=== PATIENT | female | born 1995 | race Caucasian/White ===

== ENCOUNTER 2018-02-18 09:39 | Emergency (ER) | payer BC, OTHER ==
[~2018-02-18] VITALS: Ht 165.1 cm; Wt 75.8 kg
[~2018-02-18 09:39] MED LIST: ATIVAN0.5 MG PO; BACTRIM DS TAB1 EACH PO; CIPRO500 MG PO; CIPROFLOXACIN500 M1 PO; CYCLOBENZAPRINE5 MG PO; FLEXERIL PO; IBUPROFEN 600600 M1; IBUPROFEN 600600 M1 PO; MACROBID 100 M100 M1 PO; MOBIC7.5 MG PO; NOHOMEMEDICATIONS; PERCOCET 5-3251 EACH PO; PHENAZOPYRIDIN200 M2 PO; PROTONIX40 M1 PO; PROVENTIL; TRINATE TABLET1 TAB PO; ZOFRAN4 MG PO
[2018-02-18 10:14] LABS: URINE BILIRUBIN NEGATIVE (Negative); URINE BLOOD 2+ (Negative); URINE CLARITY CLEAR; URINE COLOR YELLOW; URINE GLUCOSE-RANDOM* NEGATIVE (Negative); URINE KETONES NEGATIVE (Negative); URINE LEUKOCYTES-REFLEX NEGATIVE (Negative); URINE NITRITE-REFLEX NEGATIVE (Negative); URINE PROTEIN (DIPSTICK) NEGATIVE (Negative); URINE SPECIFIC GRAVITY 1.015 (1.005-1.035); URINE UROBILINOGEN 0.2 E.U./dl (0.2-1.0)
[2018-02-18 10:28] LABS: SQUAMOUS 4-10 Moderate /LPF (0-3)
[2018-02-18 10:29] LABS: CASTS None Seen /LPF (None Seen); CRYSTALS None Seen /LPF (None Seen); URINE RBC 0-2 Rare /HPF (0-2); URINE WBC-REFLEX 0-5 Rare /HPF (0-5)
[2018-02-18 10:30] LABS: BACTERIA-REFLEX 1-9 Few /HPF (None Seen)
[2018-02-18 10:47] LABS: ABSOLUTE NEUTROPHILS 4.3 thou/uL (1.4-8.2); BASOPHILS 0.5 % (0.0-2.0); EOSINOPHILS 3.1 % (0.0-3.0); HEMATOCRIT 36.9 % (37.0-47.0); HEMOGLOBIN 12.6 gm/dL (12.0-15.0); MCH 27.3 pg (26.0-34.0); MCHC 34.2 g/dL (28.0-37.0); MCV 79.7 fL (80.0-100.0); MONOCYTES 6.7 % (1.0-8.0); PLATELET COUNT 385 thou/uL (150-400); POLYS 59.7 % (36.0-66.0); RBC 4.63 mil/uL (4.20-5.00); RDW 13.7 % (10.5-14.5); WBC 7.3 thou/uL (4.0-11.0)
[2018-02-18 10:59] LABS: CALCIUM 9.3 mg/dL (8.5-10.1); CREATININE 0.7 mg/dL (0.6-1.0); POTASSIUM 3.6 mmol/L (3.5-5.1)
[2018-02-18] MEDS ORDERED: NAPROSYN500 MG PO (11:10)
[2018-02-18 11:28] VITALS: BP 118/74
== END 2018-02-18 11:31 | disposition home or self-care (01) ==
LOC: ER 09:39
PROVIDERS: Physician Assistant
DX: N94.6 Dysmenorrhea, unspecified (principal); E86.0 Dehydration; M54.5 Low back pain; J45.909 Unspecified asthma, uncomplicated; Z88.1 Allergy status to other antibiotic agents; Z88.5 Allergy status to narcotic agent